=== PATIENT | female | born 1990 | race Caucasian/White ===

== ENCOUNTER 2016-07-22 09:09 | Emergency (ER) | payer MEDICARE, OTHER ==
[~2016-07-22] VITALS: Ht 157.5 cm; Wt 62.0 kg
[~2016-07-22 09:09] MED LIST: ALPR0.5T3 PO; LAMO100T PO; LAMO150T PO; LANTUS2P SQ; NOVOLOGP2 SQ; TOPI1TAB31 PO
[2016-07-22 09:16] VITALS: BP 115/58; PULSE 69; RESP 17; TEMP 97.8; O2SAT 100
[2016-07-22] MEDS ORDERED: MORPHINE SULFATE 8 MG/ML INJ IM ONE (09:45)
[2016-07-22] MEDS ORDERED: KETOROLAC TROMETHAMINE 60 MG/2 ML (IM) VIAL IM ONE (09:45)
[2016-07-22] MEDS ORDERED: ORPHENADRINE INJ 60 MG/2 ML AMP IM ONE (09:45)
--- NOTE | 2016-07-22 10:13 | PD ---
HPI Chief Complaint: Back/ Neck Pain or Injury Time Seen by Provider: 09:40 Travel History International Travel<30 days: No Contact w/Intl Traveler<30days: No Traveled to known affect area: No History of Present Illness HPI 25-year-old female came to the emergency room with history of neck pain. Patient says it started yesterday afternoon but was not this bad. She thinks she might have slept wrong. This morning when she woke up the pain was excruciating going from her left side of the neck down to her left shoulder. She was unable to move since it would cause serious pain. She has a baby and was unable to pick the baby up. Her mother is bringing the baby since she lives with her mother. She seems to be in distress. No history of trauma. [facility] Past Medical History Narrative Medical List of her past medical, surgical, social and family history was reviewed from the nursing note. Anemia: Yes Anxiety: Yes High Cholesterol: Yes Developmental Delay: Yes Diabetes: Yes Patient Takes Glucophage: No Diminished Hearing: No Neurologic: Yes Immunizations Current: Yes Seizures: Yes Thyroid Disease: Yes Triglycerides - High: Yes Tetanus Vaccination: < 5 Years Influenza Vaccination: Yes ?: Not LMP: 07/19/16 Past Surgical History Section: Yes (10/28/2013) Other Surgery: Yes (CLEFT PALATE REPAIR AT AGE 1) Social History Alcohol Use: No Tobacco Use: No Substance Use: No Allergies-Medications (Allergen,Severity, Reaction): Coded Allergies: Bee Sting (Verified Allergy, Severe, Anaphylaxis, 07/22/16) Penicillin (Verified Allergy, Severe, NAUSEA, 07/22/16) *MDRO Multi-Drug Resistant Organism (Verified Allergy, Unknown, 07/22/16) Acinetobacter lwoffii Comments List of her allergies reviewed from the nursing note. Reported Meds & Prescriptions Reported Meds & Active Scripts Active Flexeril (Cyclobenzaprine HCl) 5 Mg Tab 5 Mg PO TID Naprosyn (Naproxen) 500 Mg Tab 500 Mg PO BID Reported Lantus Inj (Insulin Glargine) 1,000 Unit/10 Ml Vial 10 Units SQ HS Novolog Inj (Insulin Aspart) 1,000 Unit/10 Ml Vial 8 Units SQ TIDAC Max dose at bedtime:( )units; sugars less than 70,(0)units; sugars 150-199,(1) unit; sugars 200-249,(3) units; sugars 250-299,(5) units; sugars 300-349,(7) units; sugars greater than 349,(9) units Topiramate 100 Mg Tab 100 Mg PO BID Alprazolam 0.5 Mg Tab 0.5 Mg PO BID PRN Lamotrigine 100 Mg Tab 100 Mg PO DAILY Lamotrigine 150 Mg Tab 150 Mg PO HS Narrative Medication List of her home medications reviewed from the nursing note. Review of Systems Except as stated in HPI: all other systems reviewed are Neg Physical Exam Narrative GENERAL: Awake, alert, moderate distress SKIN: Focused skin assessment warm/dry. HEAD: Atraumatic. Normocephalic. EYES: Pupils equal and round. No scleral icterus. No injection or drainage. ENT: No nasal bleeding or discharge. Mucous membranes pink and moist. NECK: Trachea midline. No JVD. Torticollis especially on the left side CARDIOVASCULAR: Regular rate and rhythm. No murmur appreciated. RESPIRATORY: No accessory muscle use. Clear to auscultation. Breath sounds equal bilaterally. GASTROINTESTINAL: Abdomen soft, non-tender, nondistended. Hepatic and splenic margins not palpable. MUSCULOSKELETAL: No obvious deformities. No clubbing. No cyanosis. No edema. NEUROLOGICAL: Awake and alert. No obvious cranial nerve deficits. Motor grossly within normal limits. Normal speech. PSYCHIATRIC: Appropriate mood and affect; insight and judgment normal. Data Data Last Documented VS Vital Signs Date Time Temp Pulse Resp B/P Pulse Ox O2 Delivery O2 Flow Rate FiO2 07/22/16 10:51 16 07/22/16 10:48 98.1 76 130/77 99 Orders Orphenadrine Inj (Norflex Inj) (07/22/16 09:45) Morphine Inj (Morphine Inj) (07/22/16 09:45) Ketorolac Inj (Toradol Inj) (07/22/16 09:45) Blood Glucose (07/22/16 09:43) MDM Medical Decision Making Medical Screen Exam Complete: Yes Emergency Medical Condition: Yes Medical Record Reviewed: Yes Differential Diagnosis Cervical radiculopathy, torticollis, muscular spasm Narrative Course 10:37 AM patient was given IM Norflex, Toradol and morphine shots. Patient will be discharged home with prescription. Mother will take her home. Procedures EKG Prior to Arrival: No Diagnosis Primary Impression: Torticollis, acute Additional Impression: Muscle spasm Referrals: Primary Care Physician Additional Instructions: Please return to the ER if the condition worsens or any other new concerns. Apply warm compress over the area. The medications as per the prescription direction. Do not take the medications empty stomach. Med/Other Pt SpecificInfo: Prescription(s) given Scripts Cyclobenzaprine (Flexeril)5 Mg Tab5 Mg PO TID #15 TAB Ref 0 Prov:Arden Ramsey MD 07/22/16 Naproxen (Naprosyn)500 Mg Iqi228 Mg PO BID #20 TAB Ref 0 Prov:Arden Ramsey MD 07/22/16 Disposition: 01 DISCHARGE HOME Condition: Stable Arden Ramsey MD July 22, 2016 10:13
[2016-07-22] MEDS ORDERED: CYCL5TAB PO (10:40)
[2016-07-22] MEDS ORDERED: NAPR500 PO (10:40)
[2016-07-22 10:48] VITALS: BP 130/77; TEMP 98.1
[2016-07-22 10:51] VITALS: RESP 16
== END 2016-07-22 10:48 | disposition home or self-care (01) ==
LOC: NEPD 09:09
DX: M43.6 Torticollis (principal); M62.838 Other muscle spasm; E11.9 Type 2 diabetes mellitus without complications; Z79.4 Long term (current) use of insulin
CPT/HCPCS: 96372; 99283; J1885; J2270; J2360